=== PATIENT | male | born 1960 | race Caucasian/White ===

== ENCOUNTER → 2022-09-02 | Outpatient (CLI) | payer BC ==
[~2022-09-02] MED LIST: CEPH500T PO; HYDR-34 PO; LVF500T PO; ONDA4TAB11 PO; OXYC-188; PRM25T PO
--- NOTE | 2022-09-02 14:53 | Diagnostic Imaging Report ---
PROCEDURE: US Renal Bilateral. TECHNIQUE: Multiple real-time grayscale images were obtained over the kidneys in various projections bilaterally. INDICATION: History of ureteral calculus COMPARISON: None FINDINGS: Both kidneys are normal in size and echogenicity. Both kidneys measure approximately 12 cm in length. The cortical thickness and the cortical medullary differentiation is well maintained. Anechoic benign-appearing left renal cyst measures 2.5 x 2.6 x 2.2 cm. No suspicious solid masses are seen on either side. There is no evidence of calculus nor hydronephrosis. Limited views of the pelvis demonstrate mildly distended urinary bladder. No large intraluminal masses or calculi are present. Prevoid bladder volume measures 56 mL. Post void residual measures 9 mm. There is no ascites. IMPRESSION: 1. Benign-appearing left renal cyst. 2. Otherwise, unremarkable renal sonogram Dictated by: Dictated on workstation # [id number]
== END ==
LOC: RAD 11:58
PROVIDERS: ATTEND Specialist
DX: N28.1 Cyst of kidney, acquired (principal)
CPT/HCPCS: 76770